=== PATIENT | female | born 1950 | race Caucasian/White ===

== ENCOUNTER 2024-11-22 08:52 | Outpatient (CLI) | payer BC | END 2024-11-22 08:53 | disposition home or self-care (01) | LOC: LABBT 08:52 | PROVIDERS: ATTEND Dentist Oral and Maxillofacial Surgery | DX: Z01.810 Encounter for preprocedural cardiovascular examination (principal); M27.8 Other specified diseases of jaws | CPT/HCPCS: 93005; 93010 ==